=== PATIENT | male | born 1960 | race African-American/Black ===

== ENCOUNTER 2024-07-04 07:54 | Emergency (ER) | payer MEDICARE, MEDICAID ==
[~2024-07-04] VITALS: Ht 180.3 cm; Wt 100.0 kg
[2024-07-04 08:08] VITALS: O2SAT 96
[2024-07-04] MEDS ORDERED: AMOX1TAB16 MT (09:08)
[2024-07-04] MEDS ORDERED: GUAI-735 MT (09:08)
[2024-07-04] MEDS ORDERED: AZIT250T12 MT (09:08)
[2024-07-04 09:43] VITALS: BP 153/86; PULSE 92; RESP 18; TEMP 37; O2SAT 96
== END 2024-07-04 09:46 | disposition home or self-care (01) ==
LOC: ER 07:54
DX: J18.9 Pneumonia, unspecified organism (principal); J45.909 Unspecified asthma, uncomplicated; I10 Essential (primary) hypertension
CPT/HCPCS: 71045; 99283